=== PATIENT | female | born 1995 | race Caucasian/White ===

== ENCOUNTER 2019-05-22 23:05 | Day surgery (SDC) | payer OTHER ==
[2019-05-22 23:35] VITALS: BP 127/61; TEMP 98.6; BMI 32.9
[2019-05-22] MEDS ORDERED: hydrALAZINE 20 MG/ML VIAL SLOW IVP PRN (23:53)
--- NOTE | 2019-05-23 08:30 | PRG ---
DATE OF SERVICE: 05/22/2019 TIME OF SERVICE: 2350 PRESENTING COMPLAINT: Decreased movement at 36 weeks' gestation. HISTORY OF PRESENT ILLNESS: Ms. Sheldon is a 24-year-old primigravida with EDC of 06/16/2019, who reports decreased movement for approximately 6 hours. She denies rupture of membranes. She denies bleeding. She denies contractions. She has had an uncomplicated . ROAD CUTTER HISTORY: A positive, antibody negative, Pap negative, rubella immune, VDRL nonreactive. Hepatitis B, GC, chlamydia negative. Normal 3-hour GTT. Group B strep pending. Primigravida. PAST MEDICAL HISTORY: None. PAST SURGICAL HISTORY: None. ALLERGIES: NONE. MEDICATIONS: vitamins. SOCIAL HISTORY: Denies tobacco, alcohol, or drug use. FAMILY HISTORY: Noncontributory. REVIEW OF SYSTEMS: Noncontributory. PHYSICAL EXAMINATION: GENERAL: White female resting comfortably. No distress. VITAL SIGNS: Blood pressure 114/72, pulse 93, respirations 18, and temperature 98.2. HEENT: Within normal limits. LUNGS: Clear to auscultation bilaterally. HEART: Regular rhythm. ABDOMEN: Soft, nontender. No rebound or guarding. Fundal height 36. No CVA tenderness noted. FHTs 140s. VULVA: Without lesions. Vaginal exam deferred. EXTREMITIES: No clubbing, cyanosis, or edema. LABORATORY DATA: Nonstress test was carried out for approximately 25 to 30 minutes. Positive movements were audible and the patient did perceive these during the nonstress test. Positive accelerations were noted. No decelerations. Baseline of 140s to 150s. Category I heart rate tracing. IMPRESSION: Thirty-six weeks' gestation with decreased movement, now resolved with a reassuring heart rate tracing, nonstress test, category I. PLAN: Discharge home. Emergency precautions. Keep scheduled followup in [address] Newton. Job ID: [id number]
== END 2019-05-22 23:58 | disposition home or self-care (01) ==
LOC: L&D/OP 23:05
PROVIDERS: ATTEND Obstetrics & Gynecology
DX: O36.8130 Decreased fetal movements, third trimester, not applicable or unspecified (principal); Z3A.36 36 weeks gestation of pregnancy
CPT/HCPCS: 59025; 99282

== ENCOUNTER 2019-06-08 05:15 | Inpatient (IN) | payer OTHER ==
[2019-06-08] MEDS ORDERED: Ondansetron PF 4 MG/2 ML Vial IVP PRN ×4 (05:40→08:57)
[2019-06-08] MEDS ORDERED: Lactated Ringer's 1,000 ML IV SCH (05:40)
[2019-06-08] MEDS ORDERED: Promethazine HCl 25 MG/ML VIAL IM PRN ×3 (05:40→08:46)
[2019-06-08] MEDS ORDERED: hydrALAZINE 20 MG/ML VIAL SLOW IVP PRN ×2 (05:40→08:57)
[2019-06-08 05:50] VITALS: BMI 33.3
[2019-06-08] MEDS ORDERED: CEFAZOLIN 2 GM in Premix Bag 1 BAG IVPB SCH (06:00)
[2019-06-08] MEDS ORDERED: Bicitra 30 ML UDCUP PO SCH (06:00)
[2019-06-08 06:15] LABS: Hemoglobin 10.7 g/dL (12.0-16.0); Mean Corpuscular HGB CONC 34.4 g/dL (32.0-36.0); Mean Corpuscular Hemoglobin 28.2 pg (27.0-31.0); Mean Corpuscular Volume 82.1 fL (78.0-98.0); Mean Platelet Volume 6.9 fL (7.4-10.4); Platelet Count 354 thou/uL (130-400); RBC Distribution Width 12.7 % (11.5-14.5); Red Blood Cell (RBC) Count 3.81 mill/uL (4.20-5.40); White Blood Cell (WBC) Count 12.9 thou/uL (4.8-10.8)
[2019-06-08 06:55] LABS: HBSAg Index 0.12 S/CO (0-0.99); Hep B Surf Ag Non-Reactive S/CO (NonReactive)
[2019-06-08 06:56] LABS: Syphilis Antibody Nonreactive (Nonreactive); Syphilis Antibody Index 0.05 S/CO (<1.00 Non-Reactive)
[2019-06-08] MEDS ORDERED: Oxytocin 10 UNITS/ML VIAL ONE (06:58)
[2019-06-08] MEDS ORDERED: ePHEDrine/0.9% NaCl/PF SYRINGE 50 mg/10 ml ONE (06:58)
[2019-06-08] MEDS ORDERED: Ondansetron PF 4 MG/2 ML Vial ONE ×2 (06:58→10:30)
[2019-06-08] MEDS ORDERED: MORPHINE 5 MG/10 ML PF VIAL ONE (07:00)
[2019-06-08] MEDS ORDERED: Ondansetron HCl/PF 4 MG/2 ML Vial IVP PRN (08:44)
[2019-06-08] MEDS ORDERED: L&D-Morphine 4 MG/ML VIAL SLOW IVP PRN (08:44)
[2019-06-08] MEDS ORDERED: diphenhydrAMINE 50 MG/ML VIAL IVP PRN ×2 (08:44→08:46)
[2019-06-08] MEDS ORDERED: Naloxone HCl 0.4 mg/ml Vial IV PRN ×2 (08:44→08:46)
[2019-06-08] MEDS ORDERED: Meperidine HCl/PF 25 MG/ML VIAL SLOW IVP PRN (08:44)
[2019-06-08] MEDS ORDERED: Promethazine HCl 25 MG SUPP PR PRN ×2 (08:44→08:46)
[2019-06-08] MEDS ORDERED: HYDROmorphone 2 MG/ML VIAL SLOW IVP PRN (08:44)
[2019-06-08] MEDS ORDERED: Naloxone HCl 0.4 mg/ml Vial IVP PRN ×4 (08:44→08:46)
[2019-06-08] MEDS ORDERED: Ketorolac Tromethamine 30 MG/ML VIAL IVP PRN ×2 (08:44→08:46)
[2019-06-08] MEDS ORDERED: Communication Order-Pharmacy FS SCH ×2 (08:45→09:00)
[2019-06-08] MEDS ORDERED: Ketorolac Tromethamine 30 MG/ML VIAL IVP SCH (08:45)
[2019-06-08] MEDS ORDERED: Acetaminophen 325 MG TAB PO PRN (08:57)
[2019-06-08] MEDS ORDERED: Zolpidem Tartrate 5 MG TAB PO PRN (08:57)
[2019-06-08] MEDS ORDERED: diphenhydrAMINE 25 MG CAP PO PRN (08:57)
[2019-06-08] MEDS ORDERED: Adacel (T-DAP) 0.5 ML SYRINGE IM ONE (08:57)
[2019-06-08] MEDS ORDERED: Misoprostol 200 MCG TAB PR PRN (08:57)
[2019-06-08] MEDS ORDERED: Meperidine HCl/PF 25 MG/ML VIAL IM PRN (08:57)
[2019-06-08] MEDS ORDERED: Bisacodyl 10 MG SUPP PR PRN (08:57)
[2019-06-08] MEDS ORDERED: Lanolin Ointment 7 GM TUBE TOP PRN (08:57)
[2019-06-08] MEDS ORDERED: HYDROcodone/Acetaminophen 5/325 mg Tablet PO PRN (08:57)
[2019-06-08] MEDS ORDERED: Simethicone Chewable 80 MG TAB PO PRN (08:57)
[2019-06-08] MEDS ORDERED: NS / Oxytocin 40 units/1000ml 1,000 ML ONE (09:06)
--- NOTE | 2019-06-08 15:37 | OP ---
DATE OF PROCEDURE: 06/08/2019 REFINERY OPERATOR CRUDE UNIT SURGEON: Lata Manzanares MD PREOPERATIVE DIAGNOSES: 1. Term intrauterine at 39 weeks. 2. Footling breech presentation. POSTOPERATIVE DIAGNOSES: 1. Term intrauterine at 39 weeks. 2. Footling breech presentation. PROCEDURE PERFORMED: Primary low-transverse section. ANESTHESIA: Spinal catheterization. FINDINGS: 1. Persistent breech presentation. 2. Vigorous female 7 pounds 2 ounces, Apgars 9 and 9. 3. Normal uterus, tubes, and ovaries. COMPLICATIONS: None. SPECIMENS REMOVED: Cord blood. BLOOD LOSS: Less than 400 mL. DESCRIPTION OF PROCEDURE: After thorough consent and counseling, Ms. Sheldon was taken to the operating room and adequate level of anesthesia was obtained via spinal catheterization. The patient was then prepped and draped in usual sterile fashion for abdominal surgery. A Jean was placed in the bladder, which was noted to be draining clear urine. Attention was then turned to performing the primary low-transverse section. A Pfannenstiel incision was made and carried sharply to the fascia, which was also sharply incised. The midline was identified, and the rectus muscles were retracted laterally. The abdominoperitoneal cavity was entered with usual safeguard carried out. A retractor was placed, and a bladder flap was created on the vesicouterine peritoneum. A bladder blade was then placed. A low-transverse incision was made on the well-developed lower uterine segment. Upon entering the amniotic sac, a copious amount of clear amniotic fluid was visualized. The was noted to be footling breech presentation. The feet were carefully guided through the incision, and the breech was delivered in an atraumatic fashion. Using the Mauriceau maneuver, shoulders and after coming head were carefully delivered. Nuchal cord x1 was reduced. The cord was doubly clamped and cut, and the infant was handed to the pediatric team in attendance for the delivery. The was a vigorous viable female, weighing 7 pounds 2 ounces with Apgars of 9 and 9 obtained at one and five minutes respectively. Cord blood was obtained. The was handed to the pediatric team in attendance for delivery, vigorous viable female 7 pounds 2 ounces, Apgars 9 and 9. Placenta manually removed from the uterus. After cord blood was obtained, a low-transverse incision closure with running locking ligature of #1 chromic. Second imbricating layer was placed to facilitate strength and hemostasis. The vesicouterine peritoneum was closed with a running ligature of 3-0 Monocryl. The posterior cul-de-sac and gutters were cleared of clot and fluid. Uterus, fallopian tubes, and ovaries were inspected and noted to be normal. Seprafilm was applied to the low-transverse incision and to the anterior aspect of the uterus for adhesion prevention. The uterus was returned to the abdomen, and good tone hemostasis was appreciated. Lap, sponge, and needle counts were correct. Peritoneal closure with running ligature of 2-0 Vicryl. Rectus muscle was reapproximated in midline with interrupted ligatures of 2-0 Vicryl and #1 chromic. The fascia was then closed with two ligatures of 0 Vicryl, which tied in the midline. Good fascial integrity was appreciated. The incision was irrigated with copious amount of warm normal saline. The subcutaneous tissue was closed with interrupted ligatures of 2-0 plain. The skin was closed with subcuticular stitch of 4-0 Monocryl and dressed with Dermabond. A pressure dressing and ice packs were subsequently placed. Lap, sponge, and needle counts were correct x3. Estimated blood loss during the surgical procedure was less than 400 mL. The patient was taken to recovery room in good condition. Immediately following the surgery, the patient and family were made aware of the surgical procedure and operative findings. Questions were answered to their satisfaction. Mother and baby were doing well postoperatively. Job ID: [id number]
[2019-06-08] MEDS: Docusate Calcium (SURFAK) 240 MG CAP PO SCH (17:56)
[2019-06-08] MEDS: Ferrous Sulfate 325 MG TAB PO SCH (17:56)
[2019-06-08] MEDS: Lactated Ringer's 1,000 ML IV SCH ×2 (17:56→17:59)
[2019-06-08] MEDS: Prenatal Vitamin 1 TAB PO SCH (17:57)
[2019-06-08] MEDS: Ibuprofen 800 MG TAB PO SCH (17:57)
[2019-06-09] MEDS: Ferrous Sulfate 325 MG TAB PO SCH ×3 (01:16→20:58)
[2019-06-09] MEDS: Docusate Calcium (SURFAK) 240 MG CAP PO SCH ×3 (01:16→20:58)
[2019-06-09] MEDS: Lactated Ringer's 1,000 ML IV SCH ×3 (01:17→15:46)
[2019-06-09] MEDS: Ibuprofen 800 MG TAB PO SCH ×4 (01:17→20:58)
[2019-06-09 04:29] LABS: Hemoglobin 10.6 g/dL (12.0-16.0); Mean Corpuscular HGB CONC 34.4 g/dL (32.0-36.0); Mean Corpuscular Hemoglobin 28.6 pg (27.0-31.0); Mean Platelet Volume 6.8 fL (7.4-10.4); Platelet Count 291 thou/uL (130-400); RBC Distribution Width 12.9 % (11.5-14.5); Red Blood Cell (RBC) Count 3.73 mill/uL (4.20-5.40); White Blood Cell (WBC) Count 10.1 thou/uL (4.8-10.8)
[2019-06-09] MEDS: Prenatal Vitamin 1 TAB PO SCH (08:46)
[2019-06-09] MEDS: HYDROcodone/Acetaminophen 5/325 mg Tablet PO PRN ×2 (12:53→22:19)
[2019-06-10] MEDS: Lactated Ringer's 1,000 ML IV SCH ×2 (03:28→09:46)
[2019-06-10] MEDS: Ibuprofen 800 MG TAB PO SCH (05:49)
[2019-06-10] MEDS: Docusate Calcium (SURFAK) 240 MG CAP PO SCH (08:58)
[2019-06-10] MEDS: Prenatal Vitamin 1 TAB PO SCH (08:58)
[2019-06-10] MEDS: Ferrous Sulfate 325 MG TAB PO SCH (08:59)
[2019-06-10 09:02] VITALS: BP 129/80; TEMP 97.8
== END 2019-06-10 10:35 | disposition home or self-care (01) | DRG 788 ==
LOC: L&D 05:15 → 3SW 10:41
PROVIDERS: ADMIT Obstetrics & Gynecology; ATTEND Obstetrics & Gynecology
PROC: 10D00Z1 Extraction of Products of Conception, Low, Open Approach (ICD-10-PCS; principal; 2019-06-07)
DX: O32.8XX0 Maternal care for other malpresentation of fetus, not applicable or unspecified (principal); Z3A.39 39 weeks gestation of pregnancy; Z37.0 Single live birth; O69.81X0 Labor and delivery complicated by cord around neck, without compression, not applicable or unspecified
CPT/HCPCS: 36415; 51702; 76815; 85027; 86780; 86850; 86900; 86901; 87340; 90715; J0690; J1200; J2274; J2405; J2590; Q0163

== ENCOUNTER 2020-09-20 08:57 | Outpatient (CLI) | payer OTHER ==
[2020-09-20 23:04] LABS: SARS-CoV-2 MS2 Positive; SARS-CoV-2 N Gene Negative; SARS-CoV-2 S Gene Negative; SARS-CoV-2 by NAA Not Detected (NotDetected); SARS-CoV-2 orf1ab Negative
== END 2020-09-20 08:58 | disposition home or self-care (01) ==
LOC: LABBT 08:57
PROVIDERS: ATTEND Obstetrics & Gynecology
DX: Z01.812 Encounter for preprocedural laboratory examination (principal); Z20.828 Contact with and (suspected) exposure to other viral communicable diseases
CPT/HCPCS: 87635; U0003

== ENCOUNTER 2020-09-24 09:37 | Inpatient (IN) | payer OTHER ==
[2020-09-24] MEDS ORDERED: hydrALAZINE 20 MG/ML VIAL SLOW IVP PRN ×2 (10:14→15:58)
[2020-09-24] MEDS ORDERED: Famotidine/PF 20 mg/2ml Vial SLOW IVP PRN (10:14)
[2020-09-24] MEDS ORDERED: Promethazine HCl 25 MG/ML VIAL IM PRN ×4 (10:14→15:58)
[2020-09-24] MEDS ORDERED: Bicitra 30 ML UDCUP PO PRN (10:14)
[2020-09-24] MEDS ORDERED: Ondansetron PF 4 MG/2 ML Vial IVP PRN ×4 (10:14→15:58)
[2020-09-24] MEDS: Lactated Ringer's 1,000 ML IV SCH ×3 (10:16→22:38)
[2020-09-24 10:19] VITALS: BMI 35.1
[2020-09-24] MEDS ORDERED: CEFAZOLIN 2 GM in Premix Bag 1 BAG IVPB SCH (10:30)
[2020-09-24 10:44] LABS: Hemoglobin 9.1 g/dL (12.0-16.0); Mean Corpuscular HGB CONC 32.5 g/dL (32.0-36.0); Mean Corpuscular Hemoglobin 22.9 pg (27.0-31.0); Mean Corpuscular Volume 70.6 fL (78.0-98.0); Mean Platelet Volume 8.4 fL (7.4-10.4); Platelet Count 357 thou/uL (130-400); RBC Distribution Width 16.7 % (11.5-14.5); Red Blood Cell (RBC) Count 3.98 mill/uL (4.20-5.40); White Blood Cell (WBC) Count 12.5 thou/uL (4.8-10.8)
[2020-09-24 11:14] LABS: Syphilis Antibody Nonreactive (Nonreactive); Syphilis Antibody Index 0.04 S/CO (<1.00 Non-Reactive)
[2020-09-24 11:17] LABS: Hep B Surf Ag Non-Reactive S/CO (NonReactive)
[2020-09-24] MEDS ORDERED: PHENYLEPHRINE-NS 100 MCG/ML 10 ML SYRINGE ONE (11:45)
[2020-09-24] MEDS ORDERED: Oxytocin 10 UNITS/ML VIAL ONE ×2 (11:45→12:42)
[2020-09-24] MEDS ORDERED: Morphine PF 10 MG/10 ML VIAL ONE (11:45)
[2020-09-24] MEDS ORDERED: Ondansetron PF 4 MG/2 ML Vial ONE (14:17)
[2020-09-24] MEDS ORDERED: Ketorolac Tromethamine 30 MG/ML VIAL ONE (14:18)
[2020-09-24] MEDS ORDERED: NS / Oxytocin 40 units/1000ml 1,000 ML ONE (15:25)
[2020-09-24] MEDS: Ketorolac Tromethamine 30 MG/ML VIAL IVP PRN (15:40)
[2020-09-24] MEDS ORDERED: Ondansetron HCl/PF 4 MG/2 ML Vial IVP PRN ×2 (15:47→15:48)
[2020-09-24] MEDS ORDERED: HYDROmorphone 2 MG/ML VIAL SLOW IVP PRN ×2 (15:47→15:48)
[2020-09-24] MEDS ORDERED: Naloxone HCl 0.4 mg/ml Vial IVP PRN ×4 (15:47→15:48)
[2020-09-24] MEDS ORDERED: Promethazine HCl 25 MG SUPP PR PRN ×2 (15:47→15:48)
[2020-09-24] MEDS ORDERED: Naloxone HCl 0.4 mg/ml Vial IV PRN ×2 (15:47→15:48)
[2020-09-24] MEDS ORDERED: Meperidine HCl/PF 25 MG/ML VIAL SLOW IVP PRN ×2 (15:47→15:48)
[2020-09-24] MEDS ORDERED: Ketorolac Tromethamine 30 MG/ML VIAL IVP PRN (15:47)
[2020-09-24] MEDS ORDERED: diphenhydrAMINE 50 MG/ML VIAL IVP PRN ×2 (15:47→15:48)
[2020-09-24] MEDS ORDERED: L&D-Morphine 4 MG/ML VIAL SLOW IVP PRN ×2 (15:47→15:48)
[2020-09-24] MEDS ORDERED: Misoprostol 200 MCG TAB PR PRN (15:58)
[2020-09-24] MEDS ORDERED: diphenhydrAMINE 25 MG CAP PO PRN (15:58)
[2020-09-24] MEDS ORDERED: Bisacodyl 10 MG SUPP PR PRN (15:58)
[2020-09-24] MEDS ORDERED: Simethicone Chewable 80 MG TAB PO PRN (15:58)
[2020-09-24] MEDS ORDERED: Lanolin Ointment 7 GM TUBE TOP PRN (15:58)
[2020-09-24] MEDS ORDERED: Ketorolac Tromethamine 30 MG/ML VIAL IVP SCH ×2 (16:00)
[2020-09-24] MEDS ORDERED: Communication Order-Pharmacy FS SCH ×2 (16:00)
[2020-09-24] MEDS ORDERED: NS / Oxytocin 40 units/1000ml 1,000 ML IV SCH (18:30)
[2020-09-24] MEDS: Docusate Calcium (SURFAK) 240 MG CAP PO SCH (22:26)
[2020-09-24] MEDS: Ferrous Sulfate 325 MG TAB PO SCH (22:26)
[2020-09-25] MEDS: Ketorolac Tromethamine 30 MG/ML VIAL IVP PRN (02:47)
[2020-09-25] MEDS ORDERED: Zolpidem Tartrate 5 MG TAB PO PRN (04:01)
[2020-09-25 06:12] LABS: Hemoglobin 7.5 g/dL (12.0-16.0); Mean Corpuscular HGB CONC 33.6 g/dL (32.0-36.0); Mean Corpuscular Volume 71.3 fL (78.0-98.0); Mean Platelet Volume 8.2 fL (7.4-10.4); Platelet Count 286 thou/uL (130-400); RBC Distribution Width 16.5 % (11.5-14.5); Red Blood Cell (RBC) Count 3.12 mill/uL (4.20-5.40); White Blood Cell (WBC) Count 12.2 thou/uL (4.8-10.8)
[2020-09-25] MEDS ORDERED: Adacel (T-DAP) 0.5 ML SYRINGE IM ONE (09:00)
[2020-09-25] MEDS ORDERED: Varicella virus, LIVE 0.5 ML VIAL SC ONE (09:00)
[2020-09-25] MEDS ORDERED: Measles/Mumps/Rubella 10 MCG/0.5 ML VIAL SC ONE (09:00)
[2020-09-25] MEDS: Prenatal Vitamin 1 TAB PO SCH (09:46)
[2020-09-25] MEDS: Ferrous Sulfate 325 MG TAB PO SCH ×2 (09:46→19:18)
[2020-09-25] MEDS: HYDROcodone/Acetaminophen 5/325 mg Tablet PO PRN ×3 (09:46→23:08)
[2020-09-25] MEDS: Docusate Calcium (SURFAK) 240 MG CAP PO SCH ×2 (09:46→19:18)
[2020-09-25] MEDS: Ibuprofen 800 MG TAB PO SCH (19:17)
[2020-09-26] MEDS: Ibuprofen 800 MG TAB PO SCH ×3 (07:15→22:11)
[2020-09-26] MEDS: Ferrous Sulfate 325 MG TAB PO SCH ×2 (08:48→22:11)
[2020-09-26] MEDS: Docusate Calcium (SURFAK) 240 MG CAP PO SCH ×2 (08:48→22:11)
[2020-09-26] MEDS: Prenatal Vitamin 1 TAB PO SCH (08:48)
[2020-09-26] MEDS: HYDROcodone/Acetaminophen 5/325 mg Tablet PO PRN ×3 (08:51→22:11)
[2020-09-27] MEDS: Ibuprofen 800 MG TAB PO SCH ×3 (05:50→13:19)
--- NOTE | 2020-09-27 07:57 | PDOC.PP ---
Post Progress Note Post Day #: 2 PO intake tolerated: yes Flatus: yes Ambulation: yes Weight Weight 192 lb - Physical Examination General: NAD Cardiovascular: no m/r/g, RRR Respiratory: clear to auscultation bilaterally, non-labored breathing Abdominal: + bowel sounds, lochia, no distention Extremities: negative homans (B) Skin: CS incision dry & intact, no rash Neurological: no gross focal deficits Psychiatric: A&Ox3, normal affect Result Diagrams: 09/25/20 05:39 Additional Labs: Post Labs Hep Bs Antigen Non-Reactive S/CO (NonReactive) 09/24/20 10:18 Blood Type A POSITIVE 09/24/20 10:18
--- NOTE | 2020-09-27 07:58 | PDOC.PP ---
Post Progress Note Post Day #: 1 PO intake tolerated: yes Flatus: yes Ambulation: yes Weight Weight 192 lb - Physical Examination General: NAD Cardiovascular: no m/r/g, RRR Respiratory: clear to auscultation bilaterally, non-labored breathing Abdominal: + bowel sounds, lochia, no distention Extremities: negative homans (B) Skin: CS incision dry & intact, no rash Neurological: no gross focal deficits Psychiatric: A&Ox3, normal affect Result Diagrams: 09/25/20 05:39 Additional Labs: Post Labs Hep Bs Antigen Non-Reactive S/CO (NonReactive) 09/24/20 10:18 Blood Type A POSITIVE 09/24/20 10:18
--- NOTE | 2020-09-27 07:59 | PDOC.PP ---
Post Progress Note PO intake tolerated: yes Flatus: yes Ambulation: yes Weight Weight 192 lb - Physical Examination General: NAD Cardiovascular: no m/r/g, RRR Respiratory: clear to auscultation bilaterally, non-labored breathing Abdominal: + bowel sounds, lochia, no distention, appropriately TTP Extremities: negative homans (B) Skin: CS incision dry & intact, no rash Neurological: no gross focal deficits Psychiatric: A&Ox3, normal affect Result Diagrams: 09/25/20 05:39 Additional Labs: Post Labs Hep Bs Antigen Non-Reactive S/CO (NonReactive) 09/24/20 10:18 Blood Type A POSITIVE 09/24/20 10:18
--- NOTE | 2020-09-27 08:01 | PDOC.LDHP ---
Labor and Delivery H&P HPI: 25 y/o at 37 amd 3/7 weeks presents for repeat for GHTN and Breech/Breech Twins. Current gestational age (weeks): 37 Due date: 10/15/20 Grav: 2 Para: 1 Current complications: gestational hypertension Current medications: pre-joesph vitamins Previous surgical history: low tranverse CS Allergies/Adverse Reactions: Allergies Allergy/AdvReac Type Severity Reaction Status Date / Time No Known Drug Allergies Allergy Verified 06/08/19 05:48 Social history: none - Physical Exam Vital signs reviewed and normal: yes General: NAD, resting Heart: RRR Lungs: CTAB Abdomen: NTTP Extremeties: no edema FHT: category 1 - Assessment L&D Assessment: scheduled repeat section - Plan Plan: admit to L&D, to OR for section
[2020-09-27 08:14] VITALS: BP 134/83; TEMP 98
--- NOTE | 2020-09-27 08:30 | OP ---
DATE OF PROCEDURE: 09/24/2020 TIME OF SERVICE: 1239 hours Central Standard Time. PREOPERATIVE DIAGNOSES: 1. Intrauterine at 37 weeks with dichorionic diamniotic twins and gestational hypertension. 2. Three vulvar lesions with condylomatous appearance on the mons pubis. POSTOPERATIVE DIAGNOSES: 1. Intrauterine at 37 weeks with dichorionic diamniotic twins and gestational hypertension. 2. Three vulvar lesions with condylomatous appearance on the mons pubis. PROCEDURES PERFORMED: 1. Repeat low-transverse section for twins with gestational hypertension and double breech presentation. 2. Excision of 3 vulvar lesions on the mons pubis. FINDINGS: 1. Baby A; 2833 g or 6 pounds 4 ounces, Apgars 8 and 9. Baby B; 2597 g or 5 pounds 12 ounces with Apgars of 8 and 9. 2. Three vulvar lesions which appeared condylomatous on the mons pubis. QUANTITATIVE BLOOD LOSS: 490 mL. COMPLICATIONS: None. DESCRIPTION OF PROCEDURE: After obtaining consent, the patient was taken back to the operating room where her regional anesthesia was found to be adequate. The patient was placed in the dorsal supine position with leftward tilt. The skin was tested for adequate anesthesia and a scalpel was then used to make a Pfannenstiel incision which was carried down to the underlying rectus fascia. The fascia was incised in the midline and the fascial incision extended in both lateral directions. 2 Jessica clamps were placed at the superior aspect of the fascia and the rectus muscles were dissected away. Similarly, 2 Jessica clamps were placed at the inferior aspect of the incision and rectus muscles dissected away. The rectus muscles were then in the midline and the peritoneum identified and entered bluntly with the hemostat. The peritoneal incision was then extended superiorly and inferiorly. A bladder blade was then placed within the peritoneal cavity and a bladder flap was made with Metzenbaum scissors and pickups with teeth. The bladder blade was replaced. A clean scalpel was used to make a uterine incision. Baby A was delivered with gentle fundal pressure without difficulty. The baby's mouth and nose were bulb suctioned and the cord clamped and cut. The baby was then handed to waiting attendants prepared to accept baby A. Baby A's cord blood was collected and the cord marked for pathology as "A." Next, amniotomy was performed on the second membranes, and baby B was delivered in a controlled manner without difficulty. The mouth and nose were bulb suctioned and cord clamped and cut. The baby was then handed to waiting attendants prepared to accept baby B in a second warmer. Baby B's cord blood was collected and the cord marked for pathology as "B." The uterus was exteriorized, cleared of all clots and debris, and repaired with #1 chromic suture in a running, locked fashion. Hemostasis at the uterine wall was excellent. The bladder flap was repaired with 2-0 Monocryl in a running fashion. The tubes and ovaries were inspected and appeared normal. The posterior cul-de-sac was blotted dry and the uterus was replaced within the abdomen. Again, the uterus was firm, and hemostasis was excellent at the uterine repair. Peritoneum was closed with 2-0 chromic suture in a running fashion. Fascia was reapproximated with 0 Vicryl, using 2 running sutures tied in the midline. The subcutaneous tissue was irrigated. Hemostasis was assured and the skin closed with 3-0 Monocryl and Dermabond adhesive. The patient was then transferred to the ambulatory bed and taken to recovery in stable condition. ADDENDUM: Following the , the patient requested that I remove 3 lesions on the mons pubis, which were easily accessible. They did not require re-prepping. The lesions were excised sharply. Pressure was held on these lesions until hemostasis was achieved, and they were then closed with 4-0 Monocryl using interrupted sutures. Lesions were sent to Pathology for permanent section. Job ID: [id number]
[2020-09-27] MEDS: Prenatal Vitamin 1 TAB PO SCH (09:47)
[2020-09-27] MEDS: Docusate Calcium (SURFAK) 240 MG CAP PO SCH (09:47)
[2020-09-27] MEDS: Ferrous Sulfate 325 MG TAB PO SCH (09:47)
[2020-09-27] MEDS: HYDROcodone/Acetaminophen 5/325 mg Tablet PO PRN (12:41)
== END 2020-09-27 14:10 | disposition home or self-care (01) | DRG 787 ==
LOC: L&D 09:37 → 3SW 16:02
PROVIDERS: ADMIT Obstetrics & Gynecology; ATTEND Obstetrics & Gynecology
PROC: 10D00Z1 Extraction of Products of Conception, Low, Open Approach (ICD-10-PCS; principal; 2020-09-24)
PROC: 0HBAXZZ Excision of Inguinal Skin, External Approach (ICD-10-PCS; 2020-09-24)
DX: O34.219 Maternal care for unspecified type scar from previous cesarean delivery (principal); O98.32 Other infections with a predominantly sexual mode of transmission complicating childbirth; Z3A.37 37 weeks gestation of pregnancy; O13.4 Gestational [pregnancy-induced] hypertension without significant proteinuria, complicating childbirth; O32.1XX0 Maternal care for breech presentation, not applicable or unspecified; Z37.2 Twins, both liveborn; O30.043 Twin pregnancy, dichorionic/diamniotic, third trimester; A63.0 Anogenital (venereal) warts
CPT/HCPCS: 36415; 51702; 85027; 86780; 86850; 86900; 86901; 87340; 88305; J1885; J2270; J2405; J2550; Q0163